=== PATIENT | female | born 1990 | race Caucasian/White ===

== ENCOUNTER 2023-12-17 07:04 | Emergency (ER) | payer BC, SELFPAY ==
[2023-12-17 07:05] VITALS: BP 140/103
--- NOTE | 2023-12-17 07:28 | ED.GENMED ---
History of Present Illness
General
Chief Complaint: Abdominal Symptoms
Source: patient
Exam Limitations: none
Time Seen by Provider: 12/17/23 07:10
History of Present Illness
History of Present Illness:
33-year-old female presents complaining of nausea vomiting epigastric abdominal pain for the past 3 days. She states she cannot keep anything down without vomiting. She did note some loose stool yesterday. No fever. She has a history of
pancreatitis and this feels similar. No chest pain or shortness of breath. No urinary symptoms. Pain does not radiate to the back.
Past History
Past History
ED Past Medical History: Psychiatric (Anxiety depression) and Other (Endometriosis)
ED Past Surgical History: Gynecological (Hysterectomy, laparoscopies) and Other (Pain pump for endometriosis)
Social History
Tobacco: Non-smoker
Alcohol: Occasional
Drug: None
Personal:
Living: with family
Phy Exam
Physical Exam
Physical Exam:
General: Well-appearing female no acute respiratory distress
HEENT: Normocephalic atraumatic mucosa moist neck is supple
Heart: Regular rate and rhythm no murmurs
Lungs: Clear no wheeze or rales
Abdomen is soft but tender to the epigastric and right upper quadrant no guarding rebound normal bowel sounds nondistended
Extremities: No cyanosis or edema
Skin: Warm no rash
Course
Orders/Labs/Results
Orders:
Orders
12/17/23 07:23
0.9% Sodium Chloride 1000 ml [Nss] 1,000 ml IV BOLUS
Metoclopramide [Reglan] 10 mg IV NOW STA
Test Result ONCE
12/17/23 07:29
Complete Blood Count/With Diff Urgent
Comprehensive Metabolic Panel Urgent
HCG, Serum Qualitative Screen Urgent
Lipase Urgent
12/17/23 07:39
US Abdomen Complete/Upper Urgent
Comment:
Reason For Exam: epigastric pain and vomiting
Abnormal Lab Results
12/17/23
07:29
Absolute Lymphs (auto) 0.9 L 10^3/uL
(1.2-3.4)
Neutrophils % 79.9 H %
(42.2-75.2)
Lymphocytes % 13.7 L %
(20.5-51.1)
Glucose 102 H mg/dl
(70-99)
12/17/23 07:29
12/17/23 07:29
Vital Signs
Initial and Last Documented VS:
Initial Vital Signs
Temp Pulse Resp BP Pulse Ox
98.9 F 82 18 140/103 97
12/17/23 07:05 12/17/23 07:05 12/17/23 07:05 12/17/23 07:05 12/17/23 07:05
Last Documented Vital Signs
Temp Pulse Resp BP Pulse Ox
98.3 F 92 16 128/80 100
12/17/23 08:27 12/17/23 08:27 12/17/23 08:27 12/17/23 08:27 12/17/23 08:27
MDM/Problems Addressed
Differential Diagnosis Includes:
Abdominal pain nausea vomiting and diarrhea. Consider viral illness versus pancreatitis versus biliary colic
Check labs. Fluids ordered. Reglan ordered as she has been using Zofran at home without relief. Ultrasound pending
*Critical Care Note
Total Time (30-74mins, 75-104mins- exclusive of procedures): Not Applicable
Update Note
Update Note:
Patient feeling better after Reglan and fluids. Ultrasound negative lipase normal. Suspect viral illness. Will discharge patient home with Reglan for nausea as Zofran was not helping. Stable for discharge.
ED Attending Note
-
Portions of this chart may have been created with voice recognition software.� Occasional wrong word or��sound alike� substitutions may have occurred due to the inherent limitations of voice recognition software.
Discharge Plan
Departure
Patient Disposition: Home (Routine Discharge)
Date of Disposition: 12/17/23
Time of Disposition: 09:52
Patient with high blood pressure during this ER visit?: No
Discharge Problem:
Nausea and vomiting
Instructions: Nausea and Vomiting, Adult (DC)
Prescriptions:
New
metoclopramide HCl [Reglan] 10 mg tablet
10 mg PO Q6H PRN (Reason: nausea and vomiting) Qty: 10 0RF
No Action
Uribel 118-10-40.8-36 mg Capsule
1 tab PO QID
Biotin Powder
1 dose PO DAILY
hydrocodone-acetaminophen [Vicodin] 5-300 mg Tablet
1 tab PO Q6H PRN (Reason: endometriosis pain)
Referrals:
UNKNOWN - PT DOES,NOT KNOW [Family Provider] -
Stand Alone Forms: Return to Work
Activity Restrictions/Additional Instructions:
Drink plenty clear liquids. Use Reglan if needed for nausea. Return if worse otherwise follow-up with family doctor
Interventions
Interventions:
*Risk Screen - Suicide Last Done: 12/17/23 07:37
*General Assessment Last Done: 12/17/23 07:37
*Neglect/Abuse Screening Last Done: 12/17/23 07:37
ED- Fall Risk Assessment Last Done: 12/17/23 07:37
*ED COVID-19 Vaccine History Last Done: 12/17/23 07:37
TI-Fnhdmz-Dkpnwgwzhr Assessment Last Done: 12/17/23 07:37
Discharge Date and Time
Print Language: TAMAZIGHT
[2023-12-17] MEDS: REGLAN 10 MG IV (07:29)
[2023-12-17] MEDS: NSS 1000 IV (07:29)
[2023-12-17 07:37] VITALS: BP 124/88; BMI 25.9
[2023-12-17 07:52] LABS: HCG, Serum Qualitative Screen Negative
[2023-12-17 07:56] LABS: ALT (SGPT) 22 U/L (0-35); AST (SGOT) 27 U/L (14-36); Albumin 4.4 g/dl (3.5-5.0); Alkaline Phosphatase 46 U/L (38-126); Blood Urea Nitrogen 11 mg/dl (7-17); Calcium 9.5 mg/dl (8.4-10.2); Carbon Dioxide 29 mmol/L (22-30); Chloride 104 mmol/L (98-107); Estimated Creatinine Clearance 96 ml/min; Glucose 102 mg/dl (70-99); Lipase 88 U/L (23-300); Potassium 4.4 mmol/L (3.5-5.1); Sodium 139 mmol/L (135-145); Total Bilirubin 0.5 mg/dl (0.2-1.3); Total Protein 6.8 g/dl (6.3-8.2); eGFR > 60.00
[2023-12-17 08:16] LABS: % Basophils 1.1 % (0-2); % Eosinophils 0.8 % (0-6); % Immature Granulocytes 0.5 % (0-0.5); % Lymphocytes 13.7 % (20.5-51.1); % Neutrophils 79.9 % (42.2-75.2); Absolute Basophils 0.1 10^3/uL (0-0.2); Absolute Eosinophils 0.1 10^3/uL (0-0.7); Absolute Lymphocytes 0.9 10^3/uL (1.2-3.4); Absolute Monocytes 0.3 10^3/uL (0.1-0.6); Hematocrit 38.3 % (37.0-47.0); Hemoglobin 13.2 g/dL (12.0-16.0); Mean Corp Hgb Conc. 34.5 g/dL (33.0-37.0); Mean Corpuscular Hgb 30.2 pg (27.0-31.0); Mean Corpuscular Volume 87.6 fL (81.0-99.0); Mean Platelet Volume 10.4 fL (7.4-10.4); Nucleated Red Blood Cells % 0 %; Platelet Count 304 10^3/uL (130-400); Red Blood Cell Count 4.37 10^6/uL (4.20-5.40); Red Cell Dist. Width 12.1 % (11.5-14.5); White Blood Cell Count 6.2 10^3/uL (4.8-10.8)
[2023-12-17 08:27] VITALS: BP 128/80
[2023-12-17 09:57] VITALS: BP 130/87
== END 2023-12-17 10:09 | disposition home or self-care (01) ==
LOC: EMR 07:04
PROVIDERS: Physician Assistant; EMERGENCY PHYSICIAN Student in an Organized Health Care Education/Training Program
DX: R11.2 Nausea with vomiting, unspecified (principal); R10.13 Epigastric pain; F41.9 Anxiety disorder, unspecified; Z87.19 Personal history of other diseases of the digestive system; Z90.710 Acquired absence of both cervix and uterus
CPT/HCPCS: 99284; 96374; 96361; 76700; 80053; 83690; 84703; 85025

== ENCOUNTER 2024-01-09 06:46 | Day surgery (SDC) | payer BC, SELFPAY ==
[2024-01-09] VITALS (8 sets, daily range): BP systolic 111–149; BP diastolic 73–97; BMI 26.7
[2024-01-09] MEDS: NORMOSOL-R 1000 IV (08:51)
[2024-01-09] MEDS: DILAUDID 0.5 MG IV ×2 (11:01→11:11)
[2024-01-09] MEDS: Pyridium 200 MG PO (11:03)
[2024-01-09] MEDS: VALIUM 5 MG PO (11:03)
[2024-01-09] MEDS: DEMEROL 12.5 MG IV (11:32)
[2024-01-09] MEDS: ROXICODONE 10 MG PO (12:06)
== END 2024-01-09 13:12 | disposition home or self-care (01) ==
LOC: SDS 06:46
PROVIDERS: ATTENDING PHYSICIAN Urology
DX: N30.10 Interstitial cystitis (chronic) without hematuria (principal); N32.89 Other specified disorders of bladder
CPT/HCPCS: 52260

== ENCOUNTER 2024-04-30 06:35 | Day surgery (SDC) | payer BC, SELFPAY ==
[2024-04-30] VITALS (11 sets, daily range): BP systolic 100–135; BP diastolic 60–95
[2024-04-30] MEDS: Pyridium 200 MG PO (08:14)
[2024-04-30 08:17] LABS: Urine Albumin Trace (Neg - Trace); Urine Bilirubin Negative (Negative); Urine Character Clear (Clear); Urine Glucose Negative (Negative); Urine Ketone Trace (Negative); Urine Leukocyte Trace (Negative); Urine Nitrite Negative (Negative); Urine Occult Blood Trace (Negative); Urine Urobilinogen Negative (Neg - 1+); Urine pH 6.5 (5.0-9.0)
[2024-04-30 08:31] LABS: Urine Squamous Cell 16-20 /LPF (Few); Urine Urothelial Cell 0-2 /LPF (FEW)
[2024-04-30 08:33] LABS: Urine Bacteria Few (Negative)
--- NOTE | 2024-04-30 08:38 | SUR.OPER ---
Patients urine is blue due to medication called Uribel. Urine reflex to culture sent.
[2024-04-30] MEDS: DILAUDID 0.5 MG IV ×2 (09:44→09:55)
[2024-04-30] MEDS: BENADRYL 25 MG IV (10:08)
[2024-04-30] MEDS: DEMEROL 12.5 MG IV (10:26)
[2024-04-30] MEDS: VALIUM 5 MG PO (11:03)
[2024-04-30] MEDS: ROXICODONE 10 MG PO (11:26)
== END 2024-04-30 12:00 | disposition home or self-care (01) ==
LOC: SDS 06:35
PROVIDERS: ATTENDING PHYSICIAN Urology
PROC: 0T7B8ZZ Dilation of Bladder, Via Natural or Artificial Opening Endoscopic (ICD-10-PCS; 2024-04-30)
DX: N30.10 Interstitial cystitis (chronic) without hematuria (principal)
CPT/HCPCS: 52260; 81003; 81015

== ENCOUNTER 2025-05-14 05:53 | Day surgery (SDC) | payer BC, SELFPAY ==
[2025-05-14] VITALS (7 sets, daily range): BP systolic 116–147; BP diastolic 64–99; BMI 26.5
[2025-05-14] MEDS: NORMOSOL-R/PLASMALYTE-A 1000 IV (06:33)
[2025-05-14] MEDS: DILAUDID 0.5 MG IV ×2 (07:59→08:10)
[2025-05-14] MEDS: VALIUM 5 MG PO (08:53)
[2025-05-14] MEDS: ROXICODONE 5 MG PO (08:58)
== END 2025-05-14 09:35 | disposition home or self-care (01) ==
LOC: SDS 05:53
PROVIDERS: ATTENDING PHYSICIAN Obstetrics & Gynecology
DX: N39.3 Stress incontinence (female) (male) (principal); N30.10 Interstitial cystitis (chronic) without hematuria; N36.42 Intrinsic sphincter deficiency (ISD)
CPT/HCPCS: 51715; 52260; L8606